=== PATIENT | male | born 1935 | race Caucasian/White ===

== ENCOUNTER 2016-06-01 20:42 | Emergency (ER) | payer MEDICARE, OTHER ==
--- NOTE | 2016-06-01 21:48 | ER Document Report ---
[id number] - [facility] Quality of pain: No pain Severity: None Pain Level: Denies Associated symptoms: None <HECTOR HORNER - Last Filed: 06/01/16 23:47> <MATHIEU PATEL - Last Filed: 06/04/16 01:23> - General Chief Complaint: Altered Mental Status Stated Complaint: ALTERED MENTAL STATUS Notes: Patient is an 80-year-old male that presents to the emergency department today secondary to possible altered mental status. According to the daughter at bedside, the patient stopped and asked someone for directions, thinking he was in [place]. This person called the police because they were worried about the patient and his apparent confusion. Daughter states the patient is always demented secondary to alcohol abuse. Patient states he has not been drinking alcohol over the last few days but he does drink daily usually. Patient has no complaints and wishes to go home and daughter does agree that this is the patient's baseline. 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 Surgical Hx: Negative <HECTOR HORNER - Last Filed: 06/01/16 23:47> Review of Systems - Review of Systems Constitutional: No symptoms reported EENT: No symptoms reported Cardiovascular: No symptoms reported Respiratory: No symptoms reported Gastrointestinal: No symptoms reported Genitourinary: No symptoms reported Male Genitourinary: No symptoms reported Musculoskeletal: No symptoms reported Skin: No symptoms reported Hematologic/Lymphatic: No symptoms reported Neurological/Psychological: No symptoms reported -: Yes All other systems reviewed and negative <HECTOR HORNER - Last Filed: 06/01/16 23:47> Physical Exam <HECTOR HORNER - Last Filed: 06/01/16 23:47> <MATHIEU PATEL - Last Filed: 06/04/16 01:23> - Vital signs Vitals: Pulse Ox 98 06/01/16 21:00 (MATHIEU PATEL) - Notes Notes: Physical Exam: General: Alert, appears well. HEENT: Normocephalic. Atraumatic. PERRL. Extraocular movements intact. Oropharynx clear. Neck: Supple. Non-tender. Respiratory: No respiratory distress. Clear and equal breath sounds bilaterally. Cardiovascular: Regular rate and rhythm. Abdominal: Normal Inspection. Non-tender. No distension. Normal Bowel Sounds. Back: Non-tender. No deformity or step off. Extremities: Moves all four extremities. Upper extremities: Normal inspection. Non-tender. Normal color. Normal ROM. Normal temperature. Lower extremities: Normal inspection. Non-tender. No edema. Normal color. Normal ROM. Normal temperature. Neurological: Pleasantly demented. Normal speech. Psychological: Normal affect. Normal Mood. Skin: Warm. Dry. Normal color. (HECTOR HORNER) Course - Laboratory Result Diagrams: 06/01/16 21:45 06/01/16 21:45 <HECTOR HORNER - Last Filed: 06/01/16 23:47> - Laboratory Result Diagrams: 06/01/16 21:45 06/01/16 21:45 <MATHIEU PATEL - Last Filed: 06/04/16 01:23> - Re-evaluation Re-evalutation: 06/01/16 23:36 I personally performed the services described in the documentation, reviewed and edited the documentation which was dictated to my scribe in my presence, and it accurately records my words and actions. presents emergency Department with chief complaint of altered mental status. Daughter is at the bedside states that he doesn't actually have an altered mental status he has a history of alcoholic dementia she gets worse in the evening she is on at 6:30 he apparently went out driving his car was asking some people for directions they recognize anybody was in [place] called the police. The daughter was called and he came to the emergency department. He is a chronic alcoholic on Breaker but drinks on a daily basis. He states that there was be on his car but that he hasn't been drinking the last day or so. Also has not taken his blood pressure medication daughter lives right across the street in her and the niece watch him precontinuous the continuously been concern for a long period time about him living by himself. They said he is at his baseline confused mental state. Any Recent Fevers Chills Cough Trauma Neck Pain Chest Pain Shortness Breath Nausea Via Dull Pain or Diarrhea. On Examination Has Blood Pressure Slightly Elevated He Is Well-Appearing Nontoxic in No Acute Distress He Is Alert and Oriented to Person Place and Time He Does Forget Some Dates and Does Get Confused at Times about Where He Lives. Again the Daughter States This Is Baseline for Him. Acute CT of the Head Is Negative for Acute Pathology Chest X-Ray Nonacute Negative Acute Labs No Alcohol a Negative Tox Screen. Serial Assessments He Is Very Rational Is Awake Alert No Strokelike Symptoms No Complaints and Take His Blood Pressure Medication When He Gets Home Daughter Discussed with Him. He Has a Slightly Abnormal EKG with Known to Compare to but No Cardiac Complaints of Chest Pain Shortness Breath Syncope or Near-Syncope. We'll Discharge A.M. Follow-Up Primary Care Physician and Discussed Reasons for ED Return Sooner 06/01/16 23:40 (MATHIEU PATEL) - Vital Signs Vital signs: Temp Pulse Resp BP Pulse Ox 98.3 F 16 173/86 H 97 06/01/16 22:25 06/01/16 23:02 06/01/16 23:02 06/01/16 23:02 (MATHIEU PATEL) - Laboratory Laboratory results interpreted by me: 06/01/16 06/01/16 21:45 21:45 MCV 99 H Plt Count 142 L Total Bilirubin 3.4 H ALT 12 L (MATHIEU PATEL) - EKG Interpretation by Me Additional EKG results interpreted by or: 06/01/16 23:40 EKG shows normal sinus rhythm at 61 bpm right bundle branch block flipped T waves in V1 minor ischemic changes in V2 and V3 no previous EKG to compare to no acute ST elevation (MATHIEU PATEL) Discharge <HECTOR HORNER - Last Filed: 06/01/16 23:47> <MATHIEU PATEL - Last Filed: 06/04/16 01:23> - Discharge Clinical Impression: Dementia Qualifiers: Dementia type: unspecified type Dementia behavioral disturbance: without behavioral disturbance Qualified Code(s): F03.90 - Unspecified dementia without behavioral disturbance Altered mental status Qualifiers: Altered mental status type: unspecified Qualified Code(s): R41.82 - Altered mental status, unspecified Condition: Stable Disposition: HOME, SELF-CARE Additional Instructions: Altered Mental Status An altered mental status is a change in the normal functioning of the brain. This alteration of function can range from minor decreased brain function with some forgetfulness and confusion to complete loss of consciousness and coma. There are many possible causes of an altered mental status and include brain injuries such as trauma or strokes, problems with oxygen supply to the brain, fever and infections of the brain and/or elsewhere in the body, metabolic abnormalities such as low or high blood sugar, overdoses or excessive medication ingestion, and mental and psychiatric illnesses. Sometimes the altered mental status resolves and a definite cause is not determined. If a cause for your altered mental status was found, it has likely been corrected. Your evaluation has not shown any condition that requires that you be admitted to the hospital. It is believed that you are safe to leave and return to your home. If you have a return of your symptoms, you should return for re-evaluation. Forms: Elevated Blood Pressure Referrals: NINA COTA MD [Primary Care Provider] - Follow up tomorrow (In a.m. return to the emergency department sooner for increasing worsening or new symptoms) Scribe Documentation <HECTOR HORNER - Last Filed: 06/01/16 23:47> <MAHTIEU PATEL - Last Filed: 06/04/16 01:23> - Scribe Written by Scribe:: HECTOR Nicholas)
[2016-06-01 21:59] LABS: ABSOLUTE BASOPHILS # (AUTO) 0.1 10^3/uL (0.0-0.2); ABSOLUTE LYMPHOCYTES (AUTO) 1.3 10^3/uL (0.5-4.7); ABSOLUTE MONOCYTES (AUTO) 0.8 10^3/uL (0.1-1.4); ABSOLUTE NEUT (AUTO) 5.4 10^3/uL (1.7-8.2); EOSINOPHILS % (AUTO) 0.2 % (0-6); HEMATOCRIT 46.5 % (37.9-51.0); HEMOGLOBIN 15.5 g/dL (13.5-17.0); LYMPHOCYTES % (AUTO) 17.6 % (13-45); MEAN CORPUSCULAR HGB CONC 33.2 g/dL (32.0-36.0); MEAN CORPUSCULAR VOLUME 99 fl (80-97); MONOCYTES % (AUTO) 10.2 % (3-13); RED BLOOD COUNT 4.68 10^6/uL (4.35-5.55); RED CELL DISTRIBUTION WIDTH 13.8 % (11.5-14.0); WHITE BLOOD COUNT 7.6 10^3/uL (4.0-10.5)
[2016-06-01 22:14] LABS: APPEARANCE,URINE CLEAR; BILIRUBIN,URINE NEGATIVE (NEGATIVE); GLUCOSE, URINE NEGATIVE (NEGATIVE); KETONES,URINE NEGATIVE (NEGATIVE); LEUKOCYTE ESTERASE,URINE NEGATIVE (NEGATIVE); NITRITE,URINE NEGATIVE (NEGATIVE); PROTEIN,URINE NEGATIVE (NEGATIVE); URINE SPECIFIC GRAVITY 1.012; UROBILINOGEN,URINE NEGATIVE mg/dL (<2.0)
[2016-06-01 22:21] LABS: ALANINE AMINOTRANSFERASE 12 U/L (21-72); ALBUMIN 4.3 g/dL (3.5-5.0); ALKALINE PHOSPHATASE 91 U/L (38-126); ANION GAP 13 (5-19); ASPARTATE AMINO TRANSFERASE 33 U/L (17-59); BILIRUBIN,TOTAL 3.4 mg/dL (0.2-1.3); BLOOD UREA NITROGEN 18 mg/dL (7-20); CALCIUM 9.5 mg/dL (8.4-10.2); CARBON DIOXIDE 26 mmol/L (22-30); CHLORIDE 102 mmol/L (98-107); CREATININE RESULT 0.81 mg/dL (0.52-1.25); GLUCOSE 99 mg/dL (75-110); MAGNESIUM 1.9 mg/dL (1.6-2.3); SODIUM 140.6 mmol/L (137-145); TOTAL PROTEIN 7.9 g/dL (6.3-8.2)
[2016-06-01 22:28] LABS: ALCOHOL < 10 mg/dL (NONE DETECTED)
[2016-06-01 22:34] LABS: URINE BARBITURATES SCREEN NEGATIVE; URINE METHADONE SCREEN NEGATIVE; URINE PHENCYCLIDINE SCREEN NEGATIVE
[2016-06-02] VITALS: BP 173/86
--- NOTE | 2016-06-02 07:58 | EKG REPORT ---
SEVERITY:- ABNORMAL ECG - SINUS RHYTHM RIGHT BUNDLE BRANCH BLOCK BORDERLINE ST DEPRESSION, LATERAL LEADS : Confirmed by: Bryan Chris MD 02-Jun-2016 07:57:45
== END 2016-06-02 00:04 | disposition home or self-care (01) ==
LOC: ER 20:42
DX: F10.27 Alcohol dependence with alcohol-induced persisting dementia (principal); I10 Essential (primary) hypertension; I45.10 Unspecified right bundle-branch block; Z87.891 Personal history of nicotine dependence; Z79.899 Other long term (current) drug therapy
CPT/HCPCS: 36415; 70450; 71010; 80053; 80307; 81001; 83735; 84484; 85025; 93005; 93010; 99285

== ENCOUNTER 2017-10-17 14:35 | Emergency (ER) | payer MEDICARE, OTHER ==
--- NOTE | 2017-10-17 15:22 | ER Document Report ---
ED General <KYMBERLYMABLE - Last Filed: 10/17/17 16:05> - General Mode of Arrival: Medic Information source: Patient TRAVEL OUTSIDE OF THE [place] IN LAST 30 DAYS: No <HECTOR HORNER - Last Filed: 10/17/17 17:26> - General Chief Complaint: Altered Mental Status Stated Complaint: ALTERED MENTAL STATUS Time Seen by Provider: 10/17/17 14:44 Notes: Patient is an 82-year-old male that presents to the emergency department today after being found "wandering [place] According to the patient, he had a just left the store with a 12 pack of [place] light and he was returning home. EMS found the patient covered in feces. Daughter who was not originally present states the patient has alcohol-related dementia and drinks a 12 pack of beer a day. Patient has no complaints. 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 Surgical Hx: Negative <HECTOR HORNER - Last Filed: 10/17/17 17:26> Review of Systems - Review of Systems Constitutional: No symptoms reported EENT: No symptoms reported Cardiovascular: No symptoms reported Respiratory: No symptoms reported Gastrointestinal: No symptoms reported Genitourinary: No symptoms reported Male Genitourinary: No symptoms reported Musculoskeletal: No symptoms reported Skin: No symptoms reported Hematologic/Lymphatic: No symptoms reported Neurological/Psychological: No symptoms reported -: Yes All other systems reviewed and negative <HECTOR HORNER - Last Filed: 10/17/17 17:26> Physical Exam - Vital signs Interpretation: Normal - General General appearance: Appears well, Alert - HEENT Head: Normocephalic, Atraumatic Eyes: Normal Pupils: PERRL - Respiratory Respiratory status: No respiratory distress Chest status: Nontender Breath sounds: Normal Chest palpation: Normal - Cardiovascular Rhythm: Irregularly irregular - Abdominal Inspection: Normal Distension: No distension Bowel sounds: Normal Tenderness: Nontender Organomegaly: No organomegaly - Back Back: Normal, Nontender - Extremities General upper extremity: Normal inspection, Nontender. No: Edema General lower extremity: Normal inspection, Nontender, Edema - RLE>LLE - Neurological Neuro grossly intact: Yes Cognition: Confused, Other - at baseline Orientation: AAOx4 Bruce Coma Scale Eye Opening: Spontaneous Bruce Coma Scale Verbal: Oriented North Coma Scale Motor: Obeys Commands North Coma Scale Total: 15 Speech: Normal Sensory: Normal - Psychological Associated symptoms: Normal affect, Normal mood - Skin Skin Temperature: Warm Skin Moisture: Dry Skin Color: Normal <HECTOR HORNER - Last Filed: 10/17/17 17:26> - Vital signs Vitals: Resp Pulse Ox 14 95 10/17/17 14:54 10/17/17 14:54 Course - EKG Interpretation by Tn EKG shows normal: Sinus rhythm, [place], Intervals, QRS Complexes. abnormal: ST-T Waves Rate: Normal - 63 Rhythm: A.Fib, PVC's [place]/QRS: RBBB When compared to previous EKG there are: No significant change <MABLE TRAYLOR - Last Filed: 10/17/17 16:05> - Vital Signs Vital signs: Temp Pulse Resp BP Pulse Ox 97.5 F 63 16 141/65 H 95 10/17/17 15:08 10/17/17 15:00 10/17/17 16:01 10/17/17 16:01 10/17/17 16:01 Discharge <MABLE TRAYLOR - Last Filed: 10/17/17 16:05> <HECTOR HORNER - Last Filed: 10/17/17 17:26> - Discharge Clinical Impression: Chronic atrial fibrillation Dementia Qualifiers: Dementia type: unspecified type Dementia behavioral disturbance: without behavioral disturbance Qualified Code(s): F03.90 - Unspecified dementia without behavioral disturbance Condition: Stable Disposition: HOME, SELF-CARE Additional Instructions: Follow-up with your doctor if any problems. RETURN TO THE EMERGENCY ROOM IF ANY NEW OR WORSENING SYMPTOMS. Referrals: NINA COTA MD [Primary Care Provider] - Follow up as needed Scribe Attestation: 10/17/17 16:09 I personally performed the services described in the documentation, reviewed and edited the documentation which was dictated to the scribe in my presence, and it accurately records my words and actions. (MABLE TRAYLOR) Scribe Documentation - Scribe Written by Lars:: Lars Carvajal, 10/17/2017 1725 acting as scribe for :: Kymberly <HECTOR HORNER - Last Filed: 10/17/17 17:26>
[2017-10-17 16:12] VITALS: BP 141/65
--- NOTE | 2017-10-17 23:00 | EKG REPORT ---
SEVERITY:- ABNORMAL ECG - PROBABLE SINUS RHYTHM CAN NOT R/O ATRIAL FIBRILLATION, MULTIPLE VENTRICULAR PREMATURE COMPLEXES RIGHT BUNDLE BRANCH BLOCK ST DEPRESSION, CONSIDER ISCHEMIA, ANT-LAT LDS : Confirmed by: Minh Quinteros 17-Oct-2017 22:59:44
== END 2017-10-17 17:00 | disposition home or self-care (01) ==
LOC: ER 14:35
DX: I48.91 Unspecified atrial fibrillation (principal); F03.90 Unspecified dementia, unspecified severity, without behavioral disturbance, psychotic disturbance, mood disturbance, and anxiety; R41.82 Altered mental status, unspecified; F10.97 Alcohol use, unspecified with alcohol-induced persisting dementia; I10 Essential (primary) hypertension
CPT/HCPCS: 82962; 93005; 93010; 99285

== ENCOUNTER 2018-04-15 11:51 | Emergency (ER) | payer MEDICARE, OTHER ==
[2018-04-15 12:04] VITALS: BP 131/67
--- NOTE | 2018-04-15 12:56 | ER Document Report ---
ED General - General Chief Complaint: Alcohol Withdrawl Stated Complaint: POSSIBLE ETOH Time Seen by Provider: 04/15/18 12:55 Notes: Patient is a 82-year-old male that presents to the emergency department for chief complaint of confusion, need for alcohol withdrawal treatment. Patient's granddaughter is providing history, she states that the patient has been more confused recently, he is a chronic alcoholic, drinking 12 beers a day, and she is concerned that there is something else worsening his symptoms. She ultimately thinks the patient needs to be in the care of a shelter because he does have dementia. The patient himself does not have any complaints at this time, denies having any headache, chest pain, shortness of breath or other symptoms. Past Medical History: Atrial fibrillation, alcoholism, CHF, hypertension Past Surgical History: Reviewed and not pertinent to presentation Social History: Currently lives at home with family, daily alcohol use Family History: Reviewed and noncontributory for presenting illness Allergies: Reviewed, see documented allergy list. REVIEW OF SYSTEMS: Other than noted above, the 12 point review of systems was reviewed with the patient and were negative, all pertinent findings are included in the HPI. PHYSICAL EXAMINATION: Vital signs reviewed, nursing noted reviewed. GENERAL: Elderly male, disheveled appearing, no acute distress HEAD: Atraumatic, normocephalic. EYES: Eyes appear normal, extraocular movements intact, sclera anicteric, conjunctiva are normal. No nystagmus noted ENT: nares patent, oropharynx clear without exudates. Moist mucous membranes. NECK: Normal range of motion, supple without lymphadenopathy LUNGS: Breath sounds clear to auscultation bilaterally and equal. No wheezes rales or rhonchi. HEART: Heart rate bradycardic, regular rhythm ABDOMEN: Soft, nontender, normoactive bowel sounds. No rebound, guarding, or rigidity. No masses appreciated. EXTREMITIES: Nontender, good range of motion, bilateral lower extremity generalized edema, and stasis dermatitis noted. No evidence of infection at this time. NEUROLOGICAL: Patient is alert and oriented to self and place, however, no focal neurological deficits. Moves all extremities spontaneously Motor and sensory grossly intact on exam. PSYCH: Mildly agitated, but will cooperate with exam SKIN: Warm, Dry, normal turgor, stasis dermatitis bilaterally lower extremities TRAVEL OUTSIDE OF THE [place] 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 Blood work was reviewed, demonstrated hyperbilirubinemia, when compared with prior labs from 2017, this was essentially unchanged, and appears to be chronic. He does have mild hyponatremia at 130, I do not feel that this is low enough to explain the patient's symptoms, more likely a manifestation of the patient's chronic ingestion of beer. CT of the head was performed and negative, patient's ammonia level was normal, urinalysis was obtained and demonstrated Upon my evaluation I did not find a specific cause for the patient's altered mental status, I feel more likely this is the patient's declining dementia, and overall chronic alcoholism, his alcohol was negative today, however patient was not demonstrating signs of alcohol withdrawal, he was not tachycardic, nor was he hypertensive, not severely agitated, I would expect in a patient that drinks at least 12 beers a day, to have significant alcohol withdrawal symptoms with alcohol level of 0 upon presentation. I went to reevaluate the patient, he was currently eating a sandwich, he was alert to self and place, but did not know the year or the president, I am not sure if this is the patient's baseline or not, but he is not agitated for me, was speaking softly and answering questions. His family was insistent that he needs to be in a nursing home facility, that he needs to be admitted to the hospital for 3-day stay, I explained to them, that he would likely if anything be observed in the hospital for the confusion they think he has been having an decline, however they stated that an observation period would not help them, and they feel he needs to be in a nursing home facility. I explained to them that if the truly felt he would benefit from being a nursing home facility, that they could pay by self-pay, however they stated they could not afford this. I did have Robert our casework manager meet with the patient's family, to discuss some of these options. After discussion with her casework manager, family seem to understand that the patient does not meet admission criteria, and will need to follow-up as an outpatient, and if needed and felt he truly needed nursing home facility, that this could be arranged, and applications for guardianship would need to be obtained and they understood this. Laboratory 04/15/18 04/15/18 04/15/18 14:00 14:00 14:00 WBC 7.9 RBC 4.18 L Hgb 14.3 Hct 40.1 MCV 96 MCH 34.2 H MCHC 35.6 RDW 13.3 Plt Count 212 Seg Neutrophils % 68.6 Lymphocytes % 20.1 Monocytes % 9.9 Eosinophils % 0.4 Basophils % 1.0 Absolute Neutrophils 5.4 Absolute Lymphocytes 1.6 Absolute Monocytes 0.8 Absolute Eosinophils 0.0 Absolute Basophils 0.1 Sodium 130.9 L Potassium 3.6 Chloride 82 L Carbon Dioxide 30 Anion Gap 19 BUN 17 Creatinine 0.80 Est GFR ( Amer) > 60 Est GFR (Non-Af Amer) > 60 Glucose 102 Calcium 10.1 Total Bilirubin 3.5 H Direct Bilirubin 0.4 Neonat Total Bilirubin Not Reportable Neonat Direct Bilirubin Not Reportable Neonat Indirect Bili Not Reportable AST 38 ALT 11 L Alkaline Phosphatase 113 Ammonia < 8.7 L Total Protein 8.3 H Albumin 4.7 Urine Color Urine Appearance Urine pH Ur Specific [place] Urine Protein Urine Glucose (UA) Urine Ketones Urine Blood Urine Nitrite Urine Bilirubin Urine Urobilinogen Ur Leukocyte Esterase Urine WBC (Auto) U Hyaline Cast (Auto) Urine Mucus (Auto) Urine Ascorbic Acid Serum Alcohol < 10 04/15/18 16:00 WBC RBC Hgb Hct MCV MCH MCHC RDW Plt Count Seg Neutrophils % Lymphocytes % Monocytes % Eosinophils % Basophils % Absolute Neutrophils Absolute Lymphocytes Absolute Monocytes Absolute Eosinophils Absolute Basophils Sodium Potassium Chloride Carbon Dioxide Anion Gap BUN Creatinine Est GFR ( Amer) Est GFR (Non-Af Amer) Glucose Calcium Total Bilirubin Direct Bilirubin Neonat Total Bilirubin Neonat Direct Bilirubin Neonat Indirect Bili AST ALT Alkaline Phosphatase Ammonia Total Protein Albumin Urine Color YELLOW Urine Appearance CLEAR Urine pH 5.0 Ur Specific [place] 1.006 Urine Protein NEGATIVE Urine Glucose (UA) NEGATIVE Urine Ketones NEGATIVE Urine Blood NEGATIVE Urine Nitrite NEGATIVE Urine Bilirubin NEGATIVE Urine Urobilinogen NEGATIVE Ur Leukocyte Esterase NEGATIVE Urine WBC (Auto) 0 U Hyaline Cast (Auto) 3 Urine Mucus (Auto) RARE Urine Ascorbic Acid NEGATIVE Serum Alcohol Head CT 04/15/18 13:40 IMPRESSION: MILD CHRONIC CHANGES OF ATROPHY AND MICROVASCULAR ISCHEMIA. NO ACUTE PROCESS. EVIDENCE OF ACUTE STROKE: NO. - Vital Signs Vital signs: Temp Pulse Resp BP Pulse Ox 97.8 F 54 L 16 131/67 H 96 04/15/18 12:02 04/15/18 12:02 04/15/18 12:02 04/15/18 12:02 04/15/18 12:02 - Laboratory Result Diagrams: 04/15/18 14:00 04/15/18 14:00 Laboratory results interpreted by me: 04/15/18 04/15/18 04/15/18 14:00 14:00 14:00 RBC 4.18 L MCH 34.2 H Sodium 130.9 L Chloride 82 L Total Bilirubin 3.5 H ALT 11 L Ammonia < 8.7 L Total Protein 8.3 H - EKG Interpretation by Me Additional EKG results interpreted by me: EKG demonstrates atrial fibrillation with presence of right bundle branch block with a ventricular rate of 52 bpm, left axis deviation, QTC 492 ms, no evidence of acute ischemia, this is compared to prior EKG from 10/17/2017, without significant change, right bundle branch block present at that time. Discharge - Discharge Clinical Impression: Confusion, Hyponatremia, Alcoholism Condition: Stable Disposition: HOME, SELF-CARE Instructions: Chronic Alcoholism ([facility]) Additional Instructions: Please follow-up with resources provided by her casework manager, if his symptoms worsen, or not improving, he may return to the emergency department to be reevaluated. Referrals: NINA COTA MD [Primary Care Provider] - Follow up as needed
[2018-04-15] MEDS ORDERED: NORMAL SALINE 1000 ML 1,000 ML IV ONE (13:40)
--- NOTE | 2018-04-15 14:06 | RADIOLOGY REPORT (SQ) ---
EXAM DESCRIPTION: CT HEAD WITHOUT COMPLETED DATE/TIME: 04/15/2018 1:55 pm REASON FOR STUDY: altered mental status COMPARISON: May 2016 TECHNIQUE: Axial images acquired through the brain without intravenous contrast. Images reviewed wi th bone, brain and subdural windows. Additional sagittal and coronal reconstructions were generated. Images stored on PACS. All CT scanners at this facility use dose modulation, iterative reconstruction, and/or weight based d osing when appropriate to reduce radiation dose to as low as reasonably achievable (ALARA). [facility]: Dose Right [facility]: CareDose [facility]: Dose Right [facility]: Teradose 4D [facility]: Smart [employer] RADIATION DOSE: CT Rad equipment meets quality standard of care and radiation dose reduction techniq ues were employed. CTDIvol: 53.2 mGy. DLP: 1044 mGy-cm. mGy. LIMITATIONS: None. FINDINGS: VENTRICLES: Prominent. CEREBRUM: No masses. No hemorrhage. No midline shift. Areas of low density in the white matter mos t likely due to chronic micro-vascular ischemic change. No evidence for acute infarction. CEREBELLUM: No masses. No hemorrhage. No alteration of density. No evidence for acute infarction. EXTRAAXIAL SPACES: Mild age-related involutional change. No fluid collections. No masses. ORBITS AND GLOBE: No intra- or extraconal masses. Normal contour of globe without masses. CALVARIUM: No fracture. PARANASAL SINUSES: No fluid or mucosal thickening. SOFT TISSUES: No mass or hematoma. OTHER: No other significant finding. IMPRESSION: MILD CHRONIC CHANGES OF ATROPHY AND MICROVASCULAR ISCHEMIA. NO ACUTE PROCESS. EVIDENCE OF ACUTE STROKE: NO. TECHNICAL DOCUMENTATION: JOB ID: [id number] Quality ID # 436: Final reports with documentation of one or more dose reduction techniques (e.g., Au tomated exposure control, adjustment of the mA and/or kV according to patient size, use of iterative reconstruction technique) 2010 [employer]- All Rights Reserved Reading location - IP/workstation name: [email or web address]
[2018-04-15 14:19] LABS: ABSOLUTE BASOPHILS # (AUTO) 0.1 10^3/uL (0.0-0.2); ABSOLUTE LYMPHOCYTES (AUTO) 1.6 10^3/uL (0.5-4.7); ABSOLUTE MONOCYTES (AUTO) 0.8 10^3/uL (0.1-1.4); ABSOLUTE NEUT (AUTO) 5.4 10^3/uL (1.7-8.2); EOSINOPHILS % (AUTO) 0.4 % (0-6); HEMATOCRIT 40.1 % (37.9-51.0); HEMOGLOBIN 14.3 g/dL (13.5-17.0); LYMPHOCYTES % (AUTO) 20.1 % (13-45); MEAN CORPUSCULAR HEMOGLOBIN 34.2 pg (27.0-33.4); MEAN CORPUSCULAR HGB CONC 35.6 g/dL (32.0-36.0); MEAN CORPUSCULAR VOLUME 96 fl (80-97); MONOCYTES % (AUTO) 9.9 % (3-13); PLATELET COUNT 212 10^3/uL (150-450); RED BLOOD COUNT 4.18 10^6/uL (4.35-5.55); RED CELL DISTRIBUTION WIDTH 13.3 % (11.5-14.0); SEGMENTED NEUTROPHILS % (AUTO) 68.6 % (42-78); TOTAL CELLS COUNTED % (AUTO) 100 %; WHITE BLOOD COUNT 7.9 10^3/uL (4.0-10.5)
[2018-04-15 14:44] LABS: ALANINE AMINOTRANSFERASE 11 U/L (21-72); ALBUMIN 4.7 g/dL (3.5-5.0); ALKALINE PHOSPHATASE 113 U/L (38-126); ANION GAP 19 (5-19); ASPARTATE AMINO TRANSFERASE 38 U/L (17-59); BILIRUBIN,DIRECT 0.4 mg/dL (0.0-0.4); BILIRUBIN,TOTAL 3.5 mg/dL (0.2-1.3); BLOOD UREA NITROGEN 17 mg/dL (7-20); CALCIUM 10.1 mg/dL (8.4-10.2); CARBON DIOXIDE 30 mmol/L (22-30); CHLORIDE 82 mmol/L (98-107); GLUCOSE 102 mg/dL (75-110); POTASSIUM 3.6 mmol/L (3.6-5.0); SODIUM 130.9 mmol/L (137-145); TOTAL PROTEIN 8.3 g/dL (6.3-8.2)
[2018-04-15 14:45] LABS: ALCOHOL < 10 mg/dL (NONE DETECTED)
[2018-04-15] MEDS ORDERED: THIAMINE HCL 100 MG in NORMAL SALINE 50 ML IV ONE (15:35)
[2018-04-15 16:34] LABS: APPEARANCE,URINE CLEAR; BILIRUBIN,URINE NEGATIVE (NEGATIVE); COLOR,URINE YELLOW; GLUCOSE, URINE NEGATIVE (NEGATIVE); KETONES,URINE NEGATIVE (NEGATIVE); LEUKOCYTE ESTERASE,URINE NEGATIVE (NEGATIVE); NITRITE,URINE NEGATIVE (NEGATIVE); PROTEIN,URINE NEGATIVE (NEGATIVE); URINE SPECIFIC GRAVITY 1.006; UROBILINOGEN,URINE NEGATIVE mg/dL (<2.0)
--- NOTE | 2018-04-15 19:42 | EKG REPORT ---
SEVERITY:- ABNORMAL ECG - ATRIAL FIBRILLATION RIGHT BUNDLE BRANCH BLOCK ST DEPRESSION, CONSIDER ISCHEMIA, ANT-LAT LDS : Confirmed by: Bryan Chris MD 15-Apr-2018 19:42:06
== END 2018-04-15 17:45 | disposition home or self-care (01) ==
LOC: ER 11:51
DX: R41.0 Disorientation, unspecified (principal); E87.1 Hypo-osmolality and hyponatremia; F10.20 Alcohol dependence, uncomplicated; I48.91 Unspecified atrial fibrillation; I45.10 Unspecified right bundle-branch block; I50.9 Heart failure, unspecified; I11.0 Hypertensive heart disease with heart failure
CPT/HCPCS: 93005; 36415; 80307; 82140; 85025; 80053; 81001; 70450; 93010; J3411; J7030; 96361; 96365; 99285

== ENCOUNTER 2018-05-12 21:01 | Emergency (ER) | payer MEDICARE, OTHER ==
[2018-05-12] MEDS ORDERED: NORMAL SALINE 1000 ML 1,000 ML IV ONE (21:59)
[2018-05-12] MEDS ORDERED: FENTANYL CITRATE INJ/PF 100 MCG/2 ML AMPUL IV ONE ×2 (21:59→23:38)
--- NOTE | 2018-05-12 22:51 | RADIOLOGY REPORT (SQ) ---
EXAM DESCRIPTION: XR CHEST 1 VIEW COMPLETED DATE/TME: 05/12/2018 21:58 CLINICAL HISTORY: 82 years, Male, cough COMPARISON: 06/01/2016 chest NUMBER OF VIEWS: 1 TECHNIQUE: Frontal view chest LIMITATIONS: None. FINDINGS: Heart is enlarged. Atheromatous change thoracic aorta. Osteopenia. Lungs are clear. No pneumothorax IMPRESSION: Cardiomegaly. Lungs are clear copyright 2011 [employer]- All Rights Reserved
--- NOTE | 2018-05-12 22:52 | RADIOLOGY REPORT (SQ) ---
EXAM DESCRIPTION: CT HEAD WITHOUT IV CONTRAST COMPLETED DATE/TME: 05/12/2018 21:57 CLINICAL HISTORY: 82 years, Male, Fall, pain COMPARISON: Prior CT 04/15/2018. TECHNIQUE: 201 Images stored on PACS. All CT scanners at this facility use dose modulation, iterative reconstruction, and/or weight based dosing when appropriate to reduce radiation dose to as low as reasonably achievable (ALARA). [facility]: Dose Right [facility]: CareDose [facility]: Dose Right [facility]: Teradose 4D [facility]: [employer] LIMITATIONS: None. FINDINGS: The globes are intact. The paranasal sinuses and mastoid air cells are unremarkable. No displaced or depressed skull fracture. No intra or extra-axial hemorrhage. CT is limited for evaluation of acute infarct. No CT evidence for large or territorial acute infarct. Age-appropriate atrophy with small vessel ischemic change. No mass or midline shift. IMPRESSION: Age-appropriate atrophy. Small vessel ischemic change. TECHNICAL DOCUMENTATION: Quality ID # 436: Final reports with documentation of one or more dose reduction techniques (e.g., Automated exposure control, adjustment of the mA and/or kV according to patient size, use of iterative reconstruction technique) copyright 2010 [employer]- All Rights Reserved
--- NOTE | 2018-05-12 22:55 | RADIOLOGY REPORT (SQ) ---
EXAM DESCRIPTION: CT LUMBAR SPINE WITHOUT IV CONTRAST COMPLETED DATE/TME: 05/12/2018 21:57 CLINICAL HISTORY: 82 years, Male, Fall, pain COMPARISON: None. TECHNIQUE: 366 Images stored on PACS. All CT scanners at this facility use dose modulation, iterative reconstruction, and/or weight based dosing when appropriate to reduce radiation dose to as low as reasonably achievable (ALARA). [facility]: Dose Right [facility]: CareDose [facility]: Dose Right [facility]: Teradose 4D [facility]: [employer] LIMITATIONS: None. FINDINGS: 5 lumbar type vertebral bodies for the purposes of this exam. Osteopenia. Endplate degenerative changes with multiple Schmorl's node deformities. Minor superior endplate compression deformity of L1, with minimal loss of height. Vertebral body height and alignment is otherwise preserved. Limited evaluation of extraspinal anatomic structures shows moderate atheromatous change. Diffuse/multilevel facet arthropathy. No CT evidence for central canal stenosis at any level.. IMPRESSION: Diffuse degenerative change. Minor superior endplate compression deformity of L1. This is age indeterminate. Osteopenia. Vascular calcifications. TECHNICAL DOCUMENTATION: Quality ID # 436: Final reports with documentation of one or more dose reduction techniques (e.g., Automated exposure control, adjustment of the mA and/or kV according to patient size, use of iterative reconstruction technique) copyright 2011 [employer]- All Rights Reserved
--- NOTE | 2018-05-12 22:56 | RADIOLOGY REPORT (SQ) ---
EXAM DESCRIPTION: CT CERVICAL SPINE WITHOUT IV CONTRAST COMPLETED DATE/TME: 05/12/2018 21:57 CLINICAL HISTORY: 82 years, Male, Fall, pain COMPARISON: None. TECHNIQUE: 244 Images stored on PACS. All CT scanners at this facility use dose modulation, iterative reconstruction, and/or weight based dosing when appropriate to reduce radiation dose to as low as reasonably achievable (ALARA). [facility]: Dose Right [facility]: CareDose [facility]: Dose Right [facility]: Teradose 4D [facility]: [employer] LIMITATIONS: None. FINDINGS: Vertebral body height and alignment is preserved. The atlantoaxial space is preserved. The lateral masses are not displaced. Osteopenia with diffuse/multilevel degenerative change throughout the cervical spine. Prevertebral soft tissues are normal. Vascular calcifications are present. IMPRESSION: Diffuse degenerative change. No CT evidence for acute C-spine abnormality. TECHNICAL DOCUMENTATION: Quality ID # 436: Final reports with documentation of one or more dose reduction techniques (e.g., Automated exposure control, adjustment of the mA and/or kV according to patient size, use of iterative reconstruction technique) copyright 2011 [employer]- All Rights Reserved
[2018-05-12] MEDS ORDERED: THIAMINE HCL 100 MG, FOLIC ACID 1 MG in NORMAL SALINE 250 ML IV ONE (23:06)
--- NOTE | 2018-05-12 23:10 | ER Document Report ---
ED General - General Chief Complaint: Back Pain Stated Complaint: BACK PAIN Time Seen by Provider: 05/12/18 21:35 Mode of Arrival: Stretcher Information source: Patient, Relative, Emergency Med Personnel, [facility] Records Notes: 82-year-old male with dementia, hypertension, atrial fibrillation, alcohol abuse presents via EMS from home with complaint of low back pain. Daughter is at the bedside and provides the majority of the history. States the patient has had 2 falls in the last few weeks. She is currently staying with him for the holidays and states that today his back pain worsened and he was having difficulty walking. Patient denies headache, blurred vision, nausea, vomiting, chest pain, shortness of breath, abdominal pain. He does admit to drinking 12 Perez lights per day. Denies any history of alcohol withdrawal, drug use. He does smoke. Daughter reports that the patient's dementia is worsening and he is currently at his baseline. TRAVEL OUTSIDE OF THE [place] IN LAST 30 DAYS: No - HPI Onset: Other Onset/Duration: Gradual, Persistent Quality of pain: Throbbing Severity: Moderate Associated symptoms: Body/muscle aches. denies: Chest pain, Headache, Nausea, Vomiting, Shortness of breath Exacerbated by: Movement, Walking Relieved by: Denies Similar symptoms previously: Yes Recently seen / treated by doctor: No - Related Data Allergies/Adverse Reactions: No Known Allergies Allergy (Unverified 10/17/17 15:50) Past Medical History - General Information source: Patient, Relative, [facility] Records - Social History Smoking Status: Current Every Day Smoker Cigarette use (# per day): Yes - 10 Chew tobacco use (# tins/day): No Smoking Education Provided: Yes - Smoking cessation counseling was provided for 4 minutes at the bedside Frequency of alcohol use: Heavy Drug Abuse: None Lives with: Family Family History: Reviewed & Not Pertinent Patient has suicidal ideation: No Patient has homicidal ideation: No - Past Medical History Cardiac Medical History: Reports: Hx Congestive Heart Failure, Hx Hypertension Renal/ Medical History: Denies: Hx Peritoneal Dialysis Psychiatric Medical History: Reports: Hx Dementia - alcohol related Review of Systems - Review of Systems Notes: REVIEW OF SYSTEMS: CONSTITUTIONAL : Denies fever, chills, or sweats. Denies recent illness. Denies weight loss, recent hospitalizations. EENT: Denies visual changes, eye pain. Denies sore throat, oral lesions, difficulty swallowing. CARDIOVASCULAR: Denies chest pain. Denies palpitations. Denies lower extremity edema. RESPIRATORY: Denies cough. Denies shortness of breath, wheezing. GASTROINTESTINAL: Denies abdominal pain or distention. Denies nausea, vomiting, or diarrhea. Denies blood in vomitus, stools, or per rectum. Denies black, tarry stools. Denies constipation. GENITOURINARY: Denies difficulty urinating, painful urination, frequency, blood in urine, testicular pain or penile discharge. MUSCULOSKELETAL: Denies neck pain or stiffness. Denies joint pain or swe lling. SKIN: Denies rash, lesions or sores. HEMATOLOGIC : Denies easy bruising or bleeding. LYMPHATIC: Denies swollen glands. NEUROLOGICAL: Denies confusion or altered mental status. Denies loss of consciousness. Denies dizziness or lightheadedness. Denies headache. Denies weakness or paralysis. Denies problems difficulty with ambulation, slurred speech. Denies sensory loss, numbness, or tingling. Denies seizures. PSYCHIATRIC: Denies anxiety or stress. Denies depression, suicidal ideation, or Physical Exam - Vital signs Vitals: Temp Pulse Resp BP Pulse Ox 98.1 F 52 L 20 153/63 H 96 05/12/18 21:23 05/12/18 21:23 05/12/18 21:23 05/12/18 21:23 05/12/18 21:23 - Notes Notes: PHYSICAL EXAMINATION: GENERAL: Frail, cachectic, unkempt, no acute distress. GCS 15 HEAD: Atraumatic, normocephalic. EYES: Pupils equal round and reactive to light, extraocular movements intact, sclera anicteric, conjunctiva are normal. ENT: Nares patent, oropharynx clear without exudates. Dry mucous membranes. No hemanotympanum . No blood in nares. No dental fracture NECK: Normal range of motion, supple without lymphadenopathy. Trachea midline no midline tenderness. LUNGS: Breath sounds clear to auscultation bilaterally and equal. No wheezes rales or rhonchi. HEART: Regular rate and rhythm without murmurs. Pulses intact all throughout. ABDOMEN: Soft, nontender, nondistended abdomen. No guarding, no rebound. No masses appreciated. Musculoskeletal: Normal range of motion, no pitting or edema. No cyanosis. Hip non tender, stable. Midline tenderness of the lumbar spine without obvious deformity, step-off. NEUROLOGICAL: Cranial nerves grossly intact. Normal speech, Normal sensory, motor, and reflex exams. PSYCH: Normal mood, normal affect. SKIN: Scattered superficial abrasion, bruising on the patient's knees and lower extremities bilaterally. Course - Re-evaluation Re-evalutation: 05/13/18 00:[address] 05/12/18 21:57 IMPRESSION: Diffuse degenerative change. No CT evidence for acute C-spine abnormality. TECHNICAL DOCUMENTATION: Quality ID # 436: Final reports with documentation of one or more dose reduction techniques (e.g., Automated exposure control, adjustment of the mA and/or kV according to patient size, use of iterative reconstruction technique) copyright 2010 [employer]- All Rights Reserved Head CT 05/12/18 21:57 IMPRESSION: Age-appropriate atrophy. Small vessel ischemic change. TECHNICAL DOCUMENTATION: Quality ID # 436: Final reports with documentation of one or more dose reduction techniques (e.g., Automated exposure control, adjustment of the mA and/or kV according to patient size, use of iterative reconstruction technique) copyright 2010 [employer]- All Rights Reserved Lumbar Spine CT 05/12/18 21:57 IMPRESSION: Diffuse degenerative change. Minor superior endplate compression deformity of L1. This is age indeterminate. Osteopenia. Vascular calcifications. TECHNICAL DOCUMENTATION: Quality ID # 436: Final reports with documentation of one or more dose reduction techniques (e.g., Automated exposure control, adjustment of the mA and/or kV according to patient size, use of iterative reconstruction technique) copyright 2010 [employer]- All Rights Reserved Chest X-Ray 05/12/18 21:58 IMPRESSION: Cardiomegaly. Lungs are clear copyright 2010 [employer]- All Rights Reserved Temp Pulse Resp BP Pulse Ox 98.1 F 52 L 20 153/63 H 96 05/12/18 21:23 05/12/18 21:23 05/12/18 21:23 05/12/18 21:23 05/12/18 21:23 82-year-old male presents with complaint of low back pain. Vital signs reviewed upon arrival and patient is afebrile, mildly hypertensive but not hypoxic. He is alert, awake but oriented to himself only which family reports is his baseline. Exam is significant for midline tenderness of the lumbar spine without any obvious deformity or step-off. Patient does have scattered abrasions and bruising throughout his body. He denies any other pain. Daughter states that the family is currently working on placing the patient in a penitentiary facility. CT of the head was obtained and showed age-appropriate atrophy. CT cervical spine significant for degenerative disc disease. CT of the lumbar spine does show an L1 compression fracture. Chest x-ray shows cardiomegaly without evidence of fluid overload. Patient did receive IV fluids, thiamine, folic acid, fentanyl during his ED course. He consistently is requesting discharge home. Patient was evaluated and treated as appropriate for the patient's presenting symptoms and complaint, with consideration of any critical or life threatening conditions that may be associated with their obtained history and exam as noted above. All results were discussed with patient and the patient's daughters. Patient provided the opportunity to ask questions, and express concerns. Patient was educated on treatments based on their presumed diagnosis as noted above. At this time we will discharge the patient with return precautions and follow-up recommendations. Verbal discharge instructions given a the bedside. Medication warnings reviewed. Patient is in agreement with this plan and has verbalized understanding of return precautions. After careful consideration I feel that that patient can be safely discharged from the emergency department, they were advised to followup with a primary care physician in 2-3 days. Dictation on this chart was performed using voice recognition software and may result in unintended grammatical, spelling, syntax or errors. - Vital Signs Vital signs: Temp Pulse Resp BP Pulse Ox 98.1 F 52 L 20 153/63 H 96 05/12/18 21:23 05/12/18 21:23 05/12/18 21:23 05/12/18 21:23 05/12/18 21:23 - Diagnostic Test Radiology reviewed: Image reviewed, Reports reviewed Discharge - Discharge Clinical Impression: History of dementia, Elevated blood pressure reading, Dehydration, History of alcohol abuse Fall Qualifiers: Encounter type: initial encounter Qualified Code(s): W19.XXXA - Unspecified fall, initial encounter Compression fracture of L1 lumbar vertebra Qualifiers: Encounter type: initial encounter Fracture type: closed Qualified Code(s): S32.010A - Wedge compression fracture of first lumbar vertebra, initial encounte r for closed fracture Condition: Good Disposition: HOME, SELF-CARE Instructions: Compression Fracture of the Spine ([facility]), Dehydration ([facility]), Dementia ([facility]), Ice Packs ([facility]), Low Back Pain ([facility]) Additional Instructions: Follow up with your [id number] hours for further care or return to the ED IMMEDIATELY if symptoms worsen or you have any concerns. If you cannot afford to follow up with your primary care physician a list of low cost clinics have been provided at the end of your discharge papers as well. Most prescribed medications have multiple side effects. The safest thing to do is when filling your prescription speak to your pharmacist regarding possible interactions with your normal home medications and over the counter medications such as Ibuprofen, Tylenol, Benadryl. If you experience any symptoms that cause you discomfort or concern you should discontinue the medication immediately and return to the emergency room or call your primary care physician. Prescriptions: Hydrocodone/Acetaminophen [[place] 5-325 mg Tablet] 1 tab PO Q6H #15 tablet Forms: Smoking Cessation Education, Elevated Blood Pressure Referrals: BENJAMIN LERNER MD [ACTIVE STAFF] - Follow up in 3-5 days NINA COTA MD [Primary Care Provider] - Follow up tomorrow
[2018-05-12] MEDS ORDERED: THIAMINE HCL INJ 200 MG/2 ML VIAL ONE (23:51)
[2018-05-12] MEDS ORDERED: FOLIC ACID INJ 5 MG/1 ML 10 ML VIAL ONE (23:52)
[2018-05-13] MEDS ORDERED: NORMAL SALINE 1000 ML 1,000 ML IV ONE (00:29)
[2018-05-13] MEDS ORDERED: FENTANYL CITRATE INJ/PF 100 MCG/2 ML AMPUL IV PRN (00:29)
[2018-05-13 01:49] VITALS: BP 112/50
== END 2018-05-13 01:54 | disposition home or self-care (01) ==
LOC: ER 21:01
DX: S32.010A Wedge compression fracture of first lumbar vertebra, initial encounter for closed fracture (principal); S80.02XA Contusion of left knee, initial encounter; S80.01XA Contusion of right knee, initial encounter; W19.XXXA Unspecified fall, initial encounter; F03.90 Unspecified dementia, unspecified severity, without behavioral disturbance, psychotic disturbance, mood disturbance, and anxiety; I11.9 Hypertensive heart disease without heart failure; F10.10 Alcohol abuse, uncomplicated; M85.88 Other specified disorders of bone density and structure, other site; M50.30 Other cervical disc degeneration, unspecified cervical region; E86.0 Dehydration; M47.9 Spondylosis, unspecified; F17.210 Nicotine dependence, cigarettes, uncomplicated; Z71.6 Tobacco abuse counseling
CPT/HCPCS: 96376; 99406; 99284; 96361; 96375; 96365; 71045; 70450; 72125; 72131; J3010 ×2; J3490; J3411; J7030; J7050

== ENCOUNTER 2018-08-13 22:27 | Emergency (ER) | payer MEDICARE, OTHER ==
--- NOTE | 2018-08-13 23:16 | ER Document Report ---
ED General - General Stated Complaint: CARDIAC ARREST Time Seen by Provider: 08/13/18 22:37 Primary Care Provider: NINA COTA MD [Primary Care Provider] - Follow up as needed Cannot obtain history due to: Unstable vital signs, Other - And cardiac arrest Notes: Patient is an 83-year-old male with a history of chronic alcoholism, resides at [facility], apparently had cardiac arrest tonight. Bystander CPR was initiated. Patient is reportedly a DNR but was coded due to lack of availability of a DNR form. No additional history is able to be obtained secondary to clinical scenario time of presentation. TRAVEL OUTSIDE OF THE [place] IN LAST 30 DAYS: No - Related Data Allergies/Adverse Reactions: No Known Allergies Allergy (Unverified 10/17/17 15:50) Past Medical History - General Information source: Emergency Med Personnel Cannot obtain history due to: Unstable vital signs - Social History Smoking Status: Former Smoker Frequency of alcohol use: Heavy Lives with: Care Home Family History: Reviewed & Not Pertinent - Past Medical History Cardiac Medical History: Reports: Hx Congestive Heart Failure, Hx Hypertension Renal/ Medical History: Denies: Hx Peritoneal Dialysis Psychiatric Medical History: Reports: Hx Dementia - alcohol related Review of Systems - Review of Systems -: Yes ROS unobtainable due to patient's medical condition Physical Exam - Vital signs Notes: PHYSICAL EXAMINATION: GENERAL: Lifeless, GCS 3 T HEAD: Atraumatic, normocephalic. EYES: sclera anicteric, conjunctiva are normal. Pupils fixed and dilated, no response to light ENT: ET tube in place NECK: No lymphadenopathy LUNGS: Bilateral breath sounds with bagging HEART: Absent femoral and carotid pulses EXTREMITIES: Diffuse cyanosis NEUROLOGICAL: No spontaneous movement. GCS 3 T PSYCH: Obtunded SKIN: Cool, dry skin Course - Re-evaluation Re-evalutation: 08/13/18 23:12 Patient arrives in PEA cardiac arrest. Has a total code time of over 1 hour in the field. Apparently was initially in ventricular fibrillation, defibrillation was applied on 9 separate occasions including do a sequential defibrillation with conversion to PEA. The patient did have several brief periods of bradycardic pulses that were palpable in the field. Received a total of 10 mg of epinephrine. At time of arrival the patient is receiving compressions. A pulse check was completed at time of arrival without a pulse. An additional round of compressions was undertaken at that point a bedside ultrasound was done and showed continued cardiac standstill. Time of was called at 2227. I did speak with family afterwards who expressed that the patient was a DNR and they are glad that we terminated the code rapidly. Discharge - Discharge Clinical Impression: Cardiac arrest Disposition: Referrals: NINA COTA MD [Primary Care Provider] - Follow up as needed
== END 2018-08-13 23:59 | disposition expired ==
LOC: ER 22:27
DX: I46.9 Cardiac arrest, cause unspecified (principal); Z66 Do not resuscitate
CPT/HCPCS: 99285